=== PATIENT | male | born 1995 | race Caucasian/White ===

== ENCOUNTER 2017-02-27 20:49 | Emergency (ER) | payer SELFPAY ==
[2017-02-27] MEDS ORDERED: NICOTINE 21MG PATCH. TD ONE (22:15)
[2017-02-27 22:35] LABS: BASO % 1 % (0-3); EOS % 0 % (0-3); HEMATOCRIT 43.1 % (39.0-53.0); HEMOGLOBIN 14.7 g/dL (13.0-17.5); LYMPH # 1.3 x10^3/uL (1.0-4.8); LYMPH % 21 % (24-48); MEAN CORPUSCULAR HEMOGLOBIN 30 pg (25-35); MEAN CORPUSCULAR HGB CONC 34 g/dL (31-37); MEAN CORPUSCULAR VOLUME 89 fL (79-100); MONO % 8 % (0-9); NEUT % 71 % (31-73); PLATELET COUNT 234 x10^3/uL (140-400); RED BLOOD COUNT 4.86 x10^6/uL (4.30-5.70); RED CELL DISTRIBUTION WIDTH 12.9 % (11.5-14.5); WHITE BLOOD COUNT 6.3 x10^3/uL (4.0-11.0)
[2017-02-27 22:47] LABS: CREATININE 1.3 mg/dL (0.7-1.3); GFR 70.4
[2017-02-27 22:54] LABS: ALBUMIN 4.8 g/dL (3.4-5.0); ALBUMIN/GLOBULIN RATIO 1.6 (1.0-1.7); MAGNESIUM 2.3 mg/dL (1.8-2.4); TOTAL BILIRUBIN 0.5 mg/dL (0.2-1.0); TOTAL PROTEIN 7.8 g/dL (6.4-8.2)
--- NOTE | 2017-02-27 23:12 | PHYS DOC ---
Past Medical History Past Medical History: Bipolar, Depression Additional Past Medical Histor: BORDERLINE, METH ADDICTION Past Surgical History: No Surgical History Alcohol Use: Occasionally Drug Use: Marijuana Adult General Chief Complaint Chief Complaint: SUICDAL IDEATION HPI HPI Patient is a 21 year old male who presents to the emergency department by EMS for suicidal ideation. The patient was originally evaluated by authorities after the patient had gotten into an argument with his girlfriend. The girlfriend's mother called authorities who located the patient. Reportedly the patient ran away from authorities and in the process injured his right knee after running into a vine. The patient has been ambulatory since the injury but states that he is having pain just above his right knee. The patient states that he was suicidal and was planning to hang himself with a sheet. The patient admits that he had been drinking alcohol. Patient also has history of methamphetamine use. Patient states he has not used methamphetamine recently. The patient currently is stating that he does not have suicidal thoughts and he said that only because he was upset at the time. The patient states he's been diagnosed in the past with bipolar disorder and depression. The patient denies any other significant injuries at this time. Review of Systems Review of Systems Constitutional: Denies fever or chills [] Eyes: Denies change in visual acuity, redness, or eye pain [] HENT: Denies nasal congestion or sore throat [] Respiratory: Denies cough or shortness of breath [] Cardiovascular: Denies chest pain or edema[] GI: Denies abdominal pain, nausea, vomiting, bloody stools or diarrhea [] : Denies dysuria or hematuria [] Musculoskeletal: Right knee pain[] Integument: Denies rash or skin lesions [] Neurologic: Denies headache, focal weakness or sensory changes [] Current Medications Current Medications Current Medications Medications (Trade) Dose Ordered Sig/Angus Start Time Stop Time Status Last Admin Dose Admin Nicotine (Nicoderm Cq 21mg) 1 patch 1X ONCE 02/27/17 22:15 02/27/17 22:16 DC 02/27/17 22:20 1 PATCH Allergies Allergies Allergies Coded Allergies Type Severity Reaction Last Updated Verified Unable to Assess 02/27/17 No Physical Exam Physical Exam Constitutional: Alert, afebrile, agitated, cooperative. [] HENT: Normocephalic, atraumatic, bilateral external ears normal, oropharynx moist, no oral exudates, nose normal. [] Eyes: PERRLA, EOMI, conjunctiva normal, no discharge. [] Neck: Normal range of motion, no tenderness, supple, no stridor. [] Cardiovascular:Heart rate regular rhythm, no murmur [] Lungs & Thorax: Bilateral breath sounds clear to auscultation [] Abdomen: Bowel sounds normal, soft, no tenderness, no masses, no pulsatile masses. [] Skin: Warm, dry, no erythema, no rash. [] Back: No tenderness, no CVA tenderness. [] Extremities: Mild soft tissue swelling to right anterior distal thigh, no joint space tenderness in the, full range of motion and right knee present, no cyanosis, no clubbing, ROM intact in all major joints, no edema. [] Neurologic: Alert and oriented X 3, normal motor function, normal sensory function, no focal deficits noted. [] Psychologic: Affect normal, judgement normal, mood anxious. [] Current Patient Data Vital Signs Vital Signs Date Time Temp Pulse Resp B/P (MAP) Pulse Ox O2 Delivery O2 Flow Rate FiO2 02/27/17 20:50 99.0 110 18 109/73 (85) 99 Room Air 99.0 Lab Values Laboratory Tests Test 02/27/17 22:20 White Blood Count 6.3 x10^3/uL (4.0-11.0) Red Blood Count 4.86 x10^6/uL (4.30-5.70) Hemoglobin 14.7 g/dL (13.0-17.5) Hematocrit 43.1 % (39.0-53.0) Mean Corpuscular Volume 89 fL (79-100) Mean Corpuscular Hemoglobin 30 pg (25-35) Mean Corpuscular Hemoglobin Concent 34 g/dL (31-37) Red Cell Distribution Width 12.9 % (11.5-14.5) Platelet Count 234 x10^3/uL (140-400) Neutrophils (%) (Auto) 71 % (31-73) Lymphocytes (%) (Auto) 21 % (24-48) L Monocytes (%) (Auto) 8 % (0-9) Eosinophils (%) (Auto) 0 % (0-3) Basophils (%) (Auto) 1 % (0-3) Neutrophils # (Auto) 4.4 x10^3uL (1.8-7.7) Lymphocytes # (Auto) 1.3 x10^3/uL (1.0-4.8) Monocytes # (Auto) 0.5 x10^3/uL (0.0-1.1) Eosinophils # (Auto) 0.0 x10^3/uL (0.0-0.7) Basophils # (Auto) 0.0 x10^3/uL (0.0-0.2) Sodium Level 144 mmol/L (136-145) Potassium Level 3.0 mmol/L (3.5-5.1) L Chloride Level 104 mmol/L (98-107) Carbon Dioxide Level 26 mmol/L (21-32) Anion Gap 14 (6-14) Blood Urea Nitrogen 13 mg/dL (8-26) Creatinine 1.3 mg/dL (0.7-1.3) Estimated GFR (Cockcroft-Gault) 70.4 BUN/Creatinine Ratio 10 (6-20) Glucose Level 95 mg/dL (70-99) Calcium Level 9.0 mg/dL (8.5-10.1) Magnesium Level 2.3 mg/dL (1.8-2.4) Total Bilirubin 0.5 mg/dL (0.2-1.0) Aspartate Amino Transferase (AST) 21 U/L (15-37) Alanine Aminotransferase (ALT) 26 U/L (16-63) Alkaline Phosphatase 71 U/L (46-116) Total Protein 7.8 g/dL (6.4-8.2) Albumin 4.8 g/dL (3.4-5.0) Albumin/Globulin Ratio 1.6 (1.0-1.7) Ethyl Alcohol Level 113 mg/dL (0-10) H Laboratory Tests 02/27/17 22:20 Laboratory Tests 02/27/17 22:20 EKG EKG Interpreted by me: Heart rate 102, sinus tachycardia, normal intervals, normal axis, no acute ST/T-wave abnormalities present[] Radiology/Procedures Radiology/Procedures Not performed[] Course & Med Decision Making Course & Med Decision Making Pertinent Labs and Imaging studies reviewed. (See chart for details) The patient was medically cleared for PAT team evaluation. Pradeep of PAT team spoke with the patient. Patient continues to deny suicidal ideation at this time. The patient's aunt was contacted and was aware of the situation. After speaking with Marshall, she stated that she felt comfortable coming to the emergency department and taking the patient home with plans for outpatient follow-up tomorrow at [facility] for further evaluation and care. The patient was agreeable to this in the emergency department. The patient was released under care of his aunt who arrived in the emergency department at 2350. Recommended return emergency department for any worsening symptoms. Dragon Disclaimer Dragon Disclaimer This electronic medical record was generated, in whole or in part, using a voice recognition dictation system. Departure Departure Impression: Primary Impression: Suicidal ideation Additional Impression: Alcohol intoxication Disposition: 01 HOME, SELF-CARE Condition: IMPROVED Referrals: NO PCP (PCP) Patient Instructions: Alcohol Intoxication, Suicidal Feelings, How to Help Yourself Additional Instructions: Follow-up tomorrow at [facility] as discussed with Marshall from the psychiatric assessment team. Return to the emergency department for any worsening symptoms. Problem Qualifiers Additional Impression: Alcohol intoxication Complication of substance-induced condition: with unspecified complication Qualified Codes: F10.929 - Alcohol use, unspecified with intoxication, unspecified ELLE GUTIERREZ MD Feb 27, 2017 23:12
[2017-02-27 23:50] VITALS: BP 112/76
--- NOTE | 2017-02-28 06:36 | EKG ---
[facility] [address] [place] [address] Test Date: 2017-02-27 Test Time: 22:25:34 Pat Name: RASHARD NELSON Department: Room: Gender: M Database Dba: : 1995 Requested By: ELLE GUTIERREZ Order Number: [id number] Reading MD: Measurements Intervals [place] Rate: 102 P: 63 MI: 162 QRS: 57 QRSD: 86 T: 74 QT: 330 QTc: 434 Interpretive Statements SINUS TACHYCARDIA QRS(T) CONTOUR ABNORMALITY CONSIDER ANTEROSEPTAL MYOCARDIAL DAMAGE RI6.01 Unconfirmed report No previous ECG available for comparison
== END 2017-02-28 00:15 | disposition home or self-care (01) ==
LOC: ER 20:49
DX: R45.851 Suicidal ideations (principal); F10.129 Alcohol abuse with intoxication, unspecified; Y90.5 Blood alcohol level of 100-119 mg/100 ml; M25.561 Pain in right knee; F31.9 Bipolar disorder, unspecified
CPT/HCPCS: 36415; 80053; 83735; 85025; 93005; 99285; G0480